=== PATIENT | female | born 1985 | race Caucasian/White ===

== ENCOUNTER 2020-09-28 13:22 | Emergency (ER) | payer BC, SELFPAY ==
[2020-09-28 13:23] VITALS: BP 133/60; PULSE 63; RESP 20; TEMP 36.5; O2SAT 99
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
[2020-09-28] MEDS: oxyCODONE 5 MG TAB PO ×2 (14:45→16:37)
[2020-09-28] MEDS: Ondansetron O.D.T. 4 MG TABEF PO (15:33)
[2020-09-28 15:45] VITALS: BP 114/64; PULSE 91; RESP 16; TEMP 36.5; O2SAT 98
--- NOTE | 2020-09-28 16:51 | DI.VRAD_ITS ---
PROCEDURE INFORMATION: Exam: XR Left Knee Exam date and time: 09/28/2020 2:19 PM Age: 34 years old Clinical indication: Injury or trauma; Fall; Blunt trauma; Knee; Right TECHNIQUE: Imaging protocol: XR Left knee. Views: 4 or more views. COMPARISON: No relevant prior studies available. FINDINGS: Bones/joints: Normal. Soft tissues: Normal. IMPRESSION: No acute findings. Dictated and Authenticated by: Selena Cedeno MD. Ordering:MARTINE Simpson MD
--- NOTE | 2020-09-28 16:51 | DI.VRAD_ITS ---
PROCEDURE INFORMATION: Exam: XR Left Clavicle, Complete Exam date and time: 09/28/2020 2:19 PM Age: 34 years old Clinical indication: Injury or trauma; Fall; Blunt trauma (contusions or hematomas); Shoulder; Left TECHNIQUE: Imaging protocol: XR Left clavicle complete. Views: Any number of views. COMPARISON: No relevant prior studies available. FINDINGS: Bones/joints: Comminuted displaced fracture mid shaft of the left clavicle. Soft tissues: Normal. IMPRESSION: Comminuted displaced fracture mid shaft of the left clavicle. Dictated and Authenticated by: Selena Cedeno MD. Ordering:MARTINE Simpson MD
[2020-09-28 17:10] VITALS: BP 118/68; PULSE 65; RESP 16; TEMP 36.4; O2SAT 99
== END 2020-09-28 17:55 | disposition home or self-care (01) ==
PROVIDERS: Emergency Provider Physician Assistant
DX: S42.022B Displaced fracture of shaft of left clavicle, initial encounter for open fracture (principal); S80.212A Abrasion, left knee, initial encounter; S80.211A Abrasion, right knee, initial encounter; V19.3XXA Pedal cyclist (driver) (passenger) injured in unspecified nontraffic accident, initial encounter
CPT/HCPCS: 81025; 99284; 73000; 73564